=== PATIENT | male | born 1945 ===

== ENCOUNTER 2019-11-19 09:48 | Outpatient (REF) | payer OTHER, SELFPAY ==
[2019-11-19 20:01] LABS: Abs Immature Grans 0.01 k/cumm (0.0-0.09); Absolute Basophil Count 0.01 k/cumm (0.0-0.2); Absolute Lymphocyte Count 0.89 k/cumm (1.2-3.4); Absolute Monocyte Count 0.27 k/cumm (0.11-0.7); Basophils % 0.3; HCT 40.5 % (40.0-50.0); HGB 13.8 g/dL (13.5-17.5); Immature Grans % 0.3 %; Lymphocytes % 27.1; Mean Corp. HGB Concentration 34.1 g/dL (32.0-36.0); Mean Corpuscular Hemoglobin 34.4 pg (27.0-33.0); Mean Platelet Volume 12.4 fL (8.0-11.0); Monocytes % 8.2; Neutrophils % 61.1; Platelet Count 137 x1000/uL (130-400); RBC 4.01 m/cumm (4.50-6.00); RBC Distribution Width 14.3 % (11.8-14.1); White Blood Cell Count 3.28 k/cumm (4.4-10.8)
[2019-11-19 20:09] LABS: ALT 41 U/L (16-63); AST 31 U/L (15-37); Albumin 3.9 g/dL (3.4-5.0); Alkaline Phosphatase 60 U/L (46-116); Anion Gap 11.7 mmol/L (3-11); BUN 16 mg/dL (7-18); CO2 26.3 mmol/L (21.0-32.0); Calcium 8.6 mg/dL (8.5-10.1); Calculated LDL 96 mg/dL (<100); Chloride 105 mmol/L (98-107); Cholesterol 157 mg/dL (<200); Ferritin 213 ng/mL (26-388); Glucose 98 mg/dL (74-106); HDL Cholesterol 50 mg/dL (40-60); Potassium 3.9 mmol/L (3.5-5.1); Sodium 143 mmol/L (136-145); Total Protein 6.9 g/dL (6.4-8.2); Triglyceride 55 mg/dL (<150)
[2019-11-19 20:31] LABS: Hemoglobin A1C 5.7 % (3.8-5.6)
[2019-11-21 11:44] LABS: Hepatitis C Ab w Rflx HCV PCR Negative (Negative)
== END 2019-11-19 10:08 ==
LOC: NCHCN 09:48
PROVIDERS: Visit Provider Physician Assistant
DX: E78.5 Hyperlipidemia, unspecified (principal); I10 Essential (primary) hypertension; R73.01 Impaired fasting glucose; K51.90 Ulcerative colitis, unspecified, without complications; N40.0 Benign prostatic hyperplasia without lower urinary tract symptoms; Z72.0 Tobacco use; R74.8 Abnormal levels of other serum enzymes; Z11.59 Encounter for screening for other viral diseases
CPT/HCPCS: 80053; 80061; 86803; 82728; 83036; 85025